=== PATIENT | male | born 1935 | race Caucasian/White ===

== ENCOUNTER 2016-09-21 13:14 | Emergency (ER) | payer OTHER ==
[~2016-09-21] VITALS: Ht 165.1 cm; Wt 63.5 kg
--- NOTE | 2016-09-21 13:27 | NUR ---
PT BIB [facility] C/O L LOWER BACK/HIP/LEG PAIN DOWN BACK OF LEG S/P PT YESTERDAY. PT YELLING "I NEED TO SEE A DOCTOR. I NEED AN INJECTION" REPEATEDLY, ADVISED THAT THE DOCTOR WILL BE IN SOON POSSIBLE. RESP EVEN UNLABORED. SKIN WARM NONDIAPHORETIC. PEDAL PULSES INTACT. UNABLE TO AMBULATE D/T PAIN. IN ER BED 11.
[2016-09-21] MEDS ORDERED: MORPHINE SULFATE INJ 2 MG/ML DISP.SYRIN ONE ×3 (14:50→18:30)
[2016-09-21] MEDS ORDERED: ONDANSETRON HCL/PF 4 MG/2 ML VIAL ONE ×2 (14:51→17:37)
[2016-09-21] MEDS ORDERED: MORPHINE SULFATE INJ 2 MG/ML DISP.SYRIN IV ONE ×2 (15:00→17:30)
[2016-09-21] MEDS ORDERED: ONDANSETRON HCL/PF - ER 4 MG/2 ML VIAL IV ONE ×2 (15:00→17:30)
--- NOTE | 2016-09-21 15:15 | NUR ---
PT TRANSPORTED TO [facility] IN STABLE CONDITION
--- NOTE | 2016-09-21 15:42 | NUR ---
RETURNED FROM XRAY IN STABLE CONDITION
--- NOTE | 2016-09-21 15:47 | NUR ---
TAMY [phone] NEPHEW
--- NOTE | 2016-09-21 16:14 | NUR ---
PT TRANSPORTED TO CT IN STABLE CONDITION
--- NOTE | 2016-09-21 17:35 | NUR ---
PRESENTED CASE TO CHARLI RICO AT [facility] FOR TRANSFER, WILL JANETH ALFARO TO CALL
--- NOTE | 2016-09-21 18:14 | NUR ---
RESTING IN BED WITH PAIN ADEQUATELY MANAGED, HOWEVER PT STILL LYING FLAT. NAD NOTED. ALL NEEDS ATTENDED TO.
--- NOTE | 2016-09-21 18:36 | NUR ---
PT NOW C/O PAIN THAT IS NOT TOLERABLE, MOANING IN PAIN, AND STATES "I CANNOT MOVE WITHOUT YOUR HELP". MD NOTIFIED. MORPHINE ORDER RECEIVED AND ADMINISTERED.
--- NOTE | 2016-09-21 18:37 | NUR ---
RECEIVED CALL FROM [facility], [facility], PT WILL BE GOING TO [facility], ACCEPTED BY , NUMBER FOR REPORT IS [phone], BLS AMBULANCE SHOULD ARRIVE BY [phone].
--- NOTE | 2016-09-21 18:45 | NUR ---
REPORT GIVEN TO MARCO ZAPATA RN FOR TRANSFER
[2016-09-21 19:07] VITALS: BP 147/84
--- NOTE | 2016-09-21 19:08 | NUR ---
REPORT GIVEN TO PRN PROFESSOR OF BIOCHEMISTRY FOR TRANSFER. NAD NOTED. ASSISTED USING URINAL.
== END 2016-09-21 19:35 | disposition short-term general hospital (02) ==
LOC: ER 13:16
DX: M54.42 Lumbago with sciatica, left side (principal); I10 Essential (primary) hypertension; E11.9 Type 2 diabetes mellitus without complications; G89.29 Other chronic pain; M17.9 Osteoarthritis of knee, unspecified; Z96.651 Presence of right artificial knee joint; Z88.8 Allergy status to other drugs, medicaments and biological substances
CPT/HCPCS: 72100-TC; 72131-TC; 73560-TC; A4606; J2270; J2405; Z7610